=== PATIENT | male | born 1980 | race American Indian/Alaskan Native ===

== ENCOUNTER 2017-03-16 11:09 | Emergency (ER) | payer SELFPAY ==
[2017-03-16 12:09] VITALS: BP 114/70
[2017-03-16] MEDS ORDERED: TORADOL IM ONE (12:48)
[2017-03-16] MEDS ORDERED: NORCO 5/325 PO ONE (12:48)
--- NOTE | 2017-03-16 12:49 | Emergency Department Report ---
ED ENT HPI - General Chief complaint: Dental/Oral Stated complaint: TOOTHACHE,PAIN Source: patient Mode of arrival: Ambulatory Limitations: No Limitations - History of Present Illness Initial comments: 36year old male presents to ED with tooth pain x 1-2 days. patient states he was eating and noticed a piece of his tooth fell out. patient states he has appt with dentist next week for extraction of tooth. patient is stable, neurologically intact and in no acute distress. MD complaint: tooth pain -: Sudden, days(s) (2) Location: tooth # 1 - tooth fracture Severity: mild Quality: aching Consistency: constant Improves with: none Worsens with: eating Context- Dental: history of dental caries Associated Symptoms: gum swelling, toothache. denies: fever, cough, pain with swallowing - Related Data Previous Rx's Medication Instructions Recorded Last Taken Type Amoxicillin 500 mg PO BID #14 capsule 03/16/17 Unknown Rx Meloxicam 7.5 mg PO QAM #7 tablet 03/16/17 Unknown Rx Allergies Allergy/AdvReac Type Severity Reaction Status Date / Time Coconut AdvReac Hives Verified 02/12/16 08:40 peanut AdvReac Swelling Verified 02/12/16 08:40 ED Dental HPI - General Chief complaint: Dental/Oral Stated complaint: TOOTHACHE,PAIN Source: patient Mode of arrival: Ambulatory Limitations: No Limitations - Related Data Previous Rx's Medication Instructions Recorded Last Taken Type Amoxicillin 500 mg PO BID #14 capsule 03/16/17 Unknown Rx Meloxicam 7.5 mg PO QAM #7 tablet 03/16/17 Unknown Rx Allergies Allergy/AdvReac Type Severity Reaction Status Date / Time C[place]ut AdvReac Hives Verified 02/12/16 08:40 peanut AdvReac Swelling Verified 02/12/16 08:40 ED Review of Systems ROS: Stated complaint: TOOTHACHE,PAIN Other details as noted in HPI Constitutional: denies: chills, fever Eyes: denies: eye pain, eye discharge, vision change ENT: dental pain. denies: ear pain, throat pain Respiratory: denies: cough, shortness of breath, wheezing Cardiovascular: denies: chest pain, palpitations Endocrine: no symptoms reported Gastrointestinal: denies: abdominal pain, nausea, diarrhea Genitourinary: denies: urgency, dysuria Musculoskeletal: denies: back pain, joint swelling, arthralgia Skin: denies: rash, lesions Neurological: denies: headache, weakness, paresthesias Psychiatric: denies: anxiety, depression Hematological/Lymphatic: denies: easy bleeding, easy bruising ED Past Medical Hx - Past Medical History Hx Arthritis: Yes (KNEE AND FOOT;) - Surgical History Additional Surgical History: RIGHT KNEE SURGERY. LEFT HAND SURGERY - Social History Smoking Status: Current Some Day Smoker Substance Use Type: Alcohol, Marijuana - Medications Home Medications: Home Medications Medication Instructions Recorded Confirmed Last Taken Type Amoxicillin 500 mg PO BID #14 capsule 03/16/17 Unknown Rx Meloxicam 7.5 mg PO QAM #7 tablet 03/16/17 Unknown Rx ED Physical Exam - General Limitations: No Limitations General appearance: alert, in no apparent distress - Head Head exam: Present: atraumatic, normocephalic - Eye Eye exam: Present: normal appearance - ENT ENT exam: Present: mucous membranes moist - Expanded ENT Exam Expanded Ear exam: Present: normal external inspection Mouth exam: Present: normal external inspection, tongue normal Teeth exam: Present: dental caries, fractured tooth #, gingival enlargement, other (no signs of avulsion, subluxation, intrustion or extrusion) - Neck Neck exam: Present: normal inspection, full ROM. Absent: tenderness - Respiratory Respiratory exam: Present: normal lung sounds bilaterally. Absent: respiratory distress - Cardiovascular Cardiovascular Exam: Present: regular rate, normal rhythm. Absent: systolic murmur, diastolic murmur, rubs, gallop - GI/Abdominal GI/Abdominal exam: Present: soft, normal bowel sounds. Absent: distended, tenderness - Rectal Rectal exam: Present: deferred - Extremities Exam Extremities exam: Present: normal inspection - Back Exam Back exam: Present: normal inspection - Neurological Exam Neurological exam: Present: alert, oriented X3, normal gait - Psychiatric Psychiatric exam: Present: normal affect, normal mood - Skin Skin exam: Present: warm, dry, intact, normal color. Absent: rash ED Course Vital Signs 03/16/17 12:04 Temperature 97.9 F Pulse Rate 63 Respiratory 20 Rate Blood Pressure 114/70 O2 Sat by Pulse 100 Oximetry ED Medical Decision Making - Medical Decision Making 36 year old male presents to ED with toothache x1-2 days. patient has dentist appt scheduled for next Sunday. no evidence of avulsion, intrusion, extrusion or subluxation of tooth. no evidence of exposed pulp or root present at this time. patient is stable, neurologically intact and in no acute distress. Critical care attestation.: If time is entered above; I have spent that time in minutes in the direct care of this critically ill patient, excluding procedure time. ED Disposition Clinical Impression: Fractured tooth Qualifiers: Encounter type: initial encounter Fracture type: closed Qualified Code(s): S02.5XXA - Fracture of tooth (traumatic), initial encounter for closed fracture Disposition: TO HOME OR SELFCARE Is pt being admited?: No Does the pt Need Aspirin: No Condition: Stable Instructions: Toothache (ED) Additional Instructions: Please keep appt with dentist next week as previously scheduled. Prescriptions: Amoxicillin 500 mg PO BID #14 capsule Meloxicam 7.5 mg PO QAM #7 tablet Referrals: PRIMARY CARE, [Primary Care Provider] - 3-5 Days Forms: Work/School Release Form(ED)
== END 2017-03-16 13:05 | disposition home or self-care (01) ==
LOC: ED 11:09
DX: S02.5XXA Fracture of tooth (traumatic), initial encounter for closed fracture (principal); M19.90 Unspecified osteoarthritis, unspecified site; F17.210 Nicotine dependence, cigarettes, uncomplicated; F12.10 Cannabis abuse, uncomplicated; Z91.018 Allergy to other foods; X58.XXXA Exposure to other specified factors, initial encounter; Y93.89 Activity, other specified; Y92.89 Other specified places as the place of occurrence of the external cause; Y99.8 Other external cause status
CPT/HCPCS: 96372; 99282; J1885

== ENCOUNTER 2017-05-05 19:29 | Emergency (ER) | payer OTHER ==
[2017-05-05 19:40] VITALS: BP 123/72
[2017-05-05] MEDS ORDERED: TORADOL IM ONE (21:26)
--- NOTE | 2017-05-05 21:32 | Emergency Department Report ---
ED ENT HPI - General Chief complaint: Dental/Oral Stated complaint: TOOTHACHE Time Seen by Provider: 05/05/17 21:14 Source: patient Mode of arrival: Ambulatory Limitations: No Limitations - History of Present Illness Initial comments: PT states four days ago, he was eating a sub and a piece of his left lower molar broke off. PT states he was taking OTC Motrin but ever since last night, the pain has been 10/10. PT states something similar happened last month with R upper tooth. PT states when he had that tooth pulled, the Dentist told him that his left lower molar had problem due to impacted wisdom tooth. MD complaint: tooth pain Onset/Timin -: days(s) Severity scale (0 -10): 10 Quality: sharp, constant Consistency: constant Worsens with: eating Context- Dental: history of dental caries, other (broke while eating sandwich ) Associated Symptoms: toothache. denies: fever, gum swelling, sore throat - Related Data Previous Rx's Medication Instructions Recorded Last Taken Type Acetaminophen/Codeine [Tylenol #3] 1 tab PO Q6H PRN #12 tab 05/05/17 Unknown Rx Amoxicillin 500 mg PO BID #20 capsule 05/05/17 Unknown Rx Ibuprofen [Motrin] 600 mg PO Q8H PRN #15 tablet 05/05/17 Unknown Rx Allergies Allergy/AdvReac Type Severity Reaction Status Date / Time Coconut AdvReac Hives Verified 05/05/17 19:37 peanut AdvReac Swelling Verified 05/05/17 19:37 ED Dental HPI - General Chief complaint: Dental/Oral Stated complaint: TOOTHACHE Time Seen by Provider: 05/05/17 21:14 Source: family Mode of arrival: Ambulatory Limitations: No Limitations - Related Data Previous Rx's Medication Instructions Recorded Last Taken Type Acetaminophen/Codeine [Tylenol #3] 1 tab PO Q6H PRN #12 tab 05/05/17 Unknown Rx Amoxicillin 500 mg PO BID #20 capsule 05/05/17 Unknown Rx Ibuprofen [Motrin] 600 mg PO Q8H PRN #15 tablet 05/05/17 Unknown Rx Allergies Allergy/AdvReac Type Severity Reaction Status Date / Time C[place]ut AdvReac Hives Verified 05/05/17 19:37 peanut AdvReac Swelling Verified 05/05/17 19:37 ED Review of Systems ROS: Stated complaint: TOOTHACHE Other details as noted in HPI Comment: All other systems reviewed and negative Constitutional: denies: chills ( ), fever ENT: dental pain Musculoskeletal: denies: back pain, joint swelling Skin: denies: rash Neurological: headache ED Past Medical Hx - Past Medical History Hx Arthritis: Yes (KNEE AND FOOT;) - Surgical History Additional Surgical History: RIGHT KNEE SURGERY. LEFT HAND SURGERY - Social History Smoking Status: Current Every Day Smoker Substance Use Type: Alcohol - Medications Home Medications: Home Medications Medication Instructions Recorded Confirmed Last Taken Type Acetaminophen/Codeine [Tylenol #3] 1 tab PO Q6H PRN #12 tab 05/05/17 Unknown Rx Amoxicillin 500 mg PO BID #20 capsule 05/05/17 Unknown Rx Ibuprofen [Motrin] 600 mg PO Q8H PRN #15 tablet 05/05/17 Unknown Rx ED Physical Exam - General Limitations: No Limitations General appearance: alert, in no apparent distress - Head Head exam: Present: atraumatic, normocephalic, normal inspection - Eye Eye exam: Present: normal appearance. Absent: conjunctival injection, nystagmus - ENT ENT exam: Present: normal orophraynx, mucous membranes moist, normal external ear exam. Absent: normal exam - Expanded ENT Exam Expanded Ear exam: Present: normal external inspection Mouth exam: Present: normal external inspection. Absent: drooling, trismus Teeth exam: Present: other (tooth 17 with dental decay, no localized abscess ) 1 - Fractured (dental decay noted) Throat exam: Positive: normal inspection - Neck Neck exam: Present: normal inspection, full ROM. Absent: lymphadenopathy - Respiratory Respiratory exam: Absent: respiratory distress, accessory muscle use - Cardiovascular Cardiovascular Exam: Present: regular rate, normal rhythm - Extremities Exam Extremities exam: Present: normal inspection, full ROM - Back Exam Back exam: Present: normal inspection, full ROM - Neurological Exam Neurological exam: Present: alert, oriented X3 - Psychiatric Psychiatric exam: Present: normal affect, normal mood - Skin Skin exam: Present: warm, dry, intact, normal color ED Course Vital Signs 05/05/17 05/05/17 19:37 21:41 Temperature 98.3 F Pulse Rate 60 Respiratory 18 18 Rate Blood Pressure 123/72 O2 Sat by Pulse 100 Oximetry - Reevaluation(s) Reevaluation #1: 05/05/17 21:35 PT aware of plan of care. - Pulse Oximetry Interpretation Digit-Finger Initial Pulse Oximetry Readin Actions Taken: none ED Medical Decision Making - Differential Diagnosis dental decay, abscess, toothache Critical Care Time: No Critical care attestation.: If time is entered above; I have spent that time in minutes in the direct care of this critically ill patient, excluding procedure time. ED Disposition Clinical Impression: Toothache Disposition: - TO HOME OR SELFCARE Is pt being admited?: No Does the pt Need Aspirin: No Condition: Stable Instructions: Dental Caries (ED), Acute dental trauma (ED), Toothache (ED) Additional Instructions: Refrain from smoking Follow up with Dentist in 3-5 days No driving or alcohol after taking Tylenol #3 Return to the ED if you have facial swelling, are unable to open your mouth or have fevers or concerns Prescriptions: Acetaminophen/Codeine [Tylenol #3] 1 tab PO Q6H PRN #12 tab PRN Reason: Pain , Severe (7-10) Amoxicillin 500 mg PO BID #20 capsule Ibuprofen [Motrin] 600 mg PO Q8H PRN #15 tablet PRN Reason: Pain Referrals: PRIMARY CARE, [Primary Care Provider] - 3-5 Days JORDI ROLAND MD [Staff Physician] - 3-5 Days [facility] [Outside] - 3-5 Days Forms: Work/School Release Form(ED) Time of Disposition: 21:37
[2017-05-05] MEDS ORDERED: TORADOL ONE (21:35)
== END 2017-05-05 21:52 | disposition home or self-care (01) ==
LOC: ED 19:29
DX: S02.5XXA Fracture of tooth (traumatic), initial encounter for closed fracture (principal); K02.9 Dental caries, unspecified; F17.200 Nicotine dependence, unspecified, uncomplicated; M19.90 Unspecified osteoarthritis, unspecified site; Z91.018 Allergy to other foods; Z91.010 Allergy to peanuts; X58.XXXA Exposure to other specified factors, initial encounter; Y93.89 Activity, other specified; Y99.8 Other external cause status; Y92.89 Other specified places as the place of occurrence of the external cause
CPT/HCPCS: 96372; 99282; J1885

== ENCOUNTER 2017-10-21 16:06 | Emergency (ER) | payer SELFPAY ==
[2017-10-21 16:19] VITALS: BP 109/67
[2017-10-21] MEDS ORDERED: TORADOL IM ONE (17:06)
--- NOTE | 2017-10-21 17:12 | Emergency Department Report ---
ED ENT HPI - General Chief complaint: Dental/Oral Stated complaint: TOOTH PAIN Time Seen by Provider: 10/21/17 16:49 Source: patient Mode of arrival: Ambulatory Limitations: No Limitations - History of Present Illness Initial comments: This is a 37-year-old male nontoxic, well nourished in appearance, no acute signs of distress presents to the ED with c/o of left lower toothache 3 days. Patient stated had his tooth pulled. Patient stated that the area has swelling again with pain. Patient stated that pain radiates from his job to his left side of head. Patient otherwise denies any head trauma. Patient describes toothache as aching level of 8 out of 10. Patient denies any facial swelling. Patient denies any numbness, tingling, fever, chills, headache, stiff neck, abdominal pain, chest pain, shortness of breath. Patient denies any drug allergies or significant past medical history. MD complaint: tooth pain -: days(s) (3) Location: tooth # 1 - pain here Severity: mild Severity scale (0 -10): 8 Quality: aching Consistency: constant Improves with: none Worsens with: none Context- Dental: history of dental caries, poor dental care Associated Symptoms: gum swelling, toothache. denies: fever, cough, pain with swallowing, sore throat, tinnitus, hearing loss, discharge from ear, rhinorrhea - Related Data Previous Rx's Medication Instructions Recorded Last Taken Type Acetaminophen/Codeine [Tylenol #3] 1 tab PO Q6H PRN #12 tab 05/05/17 Unknown Rx Amoxicillin 500 mg PO BID #20 capsule 05/05/17 Unknown Rx Ibuprofen [Motrin] 600 mg PO Q8H PRN #15 tablet 05/05/17 Unknown Rx Acetaminophen/Codeine [Tylenol 1 tab PO Q6H PRN #14 tab 10/21/17 Unknown Rx /Codeine # 3 tab] Clindamycin [Clindamycin CAP] 300 mg PO Q8H #21 cap 10/21/17 Unknown Rx Ibuprofen [Motrin] 600 mg PO Q8H PRN #30 tablet 10/21/17 Unknown Rx Allergies Allergy/AdvReac Type Severity Reaction Status Date / Time Coconut AdvReac Hives Verified 05/05/17 19:37 peanut AdvReac Swelling Verified 05/05/17 19:37 ED Dental HPI - General Chief complaint: Dental/Oral Stated complaint: TOOTH PAIN Time Seen by Provider: 10/21/17 16:49 Source: patient Mode of arrival: Ambulatory Limitations: No Limitations - Related Data Previous Rx's Medication Instructions Recorded Last Taken Type Acetaminophen/Codeine [Tylenol #3] 1 tab PO Q6H PRN #12 tab 05/05/17 Unknown Rx Amoxicillin 500 mg PO BID #20 capsule 05/05/17 Unknown Rx Ibuprofen [Motrin] 600 mg PO Q8H PRN #15 tablet 05/05/17 Unknown Rx Acetaminophen/Codeine [Tylenol 1 tab PO Q6H PRN #14 tab 10/21/17 Unknown Rx /Codeine # 3 tab] Clindamycin [Clindamycin CAP] 300 mg PO Q8H #21 cap 10/21/17 Unknown Rx Ibuprofen [Motrin] 600 mg PO Q8H PRN #30 tablet 10/21/17 Unknown Rx Allergies Allergy/AdvReac Type Severity Reaction Status Date / Time C[place]ut AdvReac Hives Verified 05/05/17 19:37 peanut AdvReac Swelling Verified 05/05/17 19:37 ED Review of Systems ROS: Stated complaint: TOOTH PAIN Other details as noted in HPI Constitutional: denies: chills, fever Eyes: denies: eye pain, eye discharge, vision change ENT: dental pain. denies: ear pain, throat pain Respiratory: denies: cough, shortness of breath, wheezing Cardiovascular: denies: chest pain, palpitations Endocrine: no symptoms reported Gastrointestinal: denies: abdominal pain, nausea, diarrhea Genitourinary: denies: urgency, dysuria Musculoskeletal: denies: back pain, joint swelling, arthralgia Skin: denies: rash, lesions Neurological: denies: headache, weakness, paresthesias Psychiatric: denies: anxiety, depression Hematological/Lymphatic: denies: easy bleeding, easy bruising ED Past Medical Hx - Past Medical History Hx Arthritis: Yes (KNEE AND FOOT;) - Surgical History Additional Surgical History: RIGHT KNEE SURGERY. LEFT HAND SURGERY - Social History Smoking Status: Current Every Day Smoker Substance Use Type: None - Medications Home Medications: Home Medications Medication Instructions Recorded Confirmed Last Taken Type Acetaminophen/Codeine [Tylenol #3] 1 tab PO Q6H PRN #12 tab 05/05/17 Unknown Rx Amoxicillin 500 mg PO BID #20 capsule 05/05/17 Unknown Rx Ibuprofen [Motrin] 600 mg PO Q8H PRN #15 tablet 05/05/17 Unknown Rx Acetaminophen/Codeine [Tylenol 1 tab PO Q6H PRN #14 tab 10/21/17 Unknown Rx /Codeine # 3 tab] Clindamycin [Clindamycin CAP] 300 mg PO Q8H #21 cap 10/21/17 Unknown Rx Ibuprofen [Motrin] 600 mg PO Q8H PRN #30 tablet 10/21/17 Unknown Rx ED Physical Exam - General Limitations: No Limitations General appearance: alert, in no apparent distress - Head Head exam: Present: atraumatic, normocephalic - Eye Eye exam: Present: normal appearance Pupils: Present: normal accommodation - ENT ENT exam: Present: mucous membranes moist, TM's normal bilaterally, normal external ear exam - Expanded ENT Exam Expanded Ear exam: Present: normal external inspection Mouth exam: Present: normal external inspection, tongue normal. Absent: drooling, trismus, muffled voice, tongue elevation, laceration Teeth exam: Present: dental caries, fractured tooth #, dental tenderness #, gingival enlargement, other (slight gingival swelling. No facial swelling.) Throat exam: Positive: normal inspection, other (Uvula midline.). Negative: tonsillar erythema, tonsillomegaly, tonsillar exudate, R peritonsillar mass, L peritonsillar mass - Neck Neck exam: Present: normal inspection, full ROM. Absent: tenderness, meningismus, lymphadenopathy - Respiratory Respiratory exam: Present: normal lung sounds bilaterally. Absent: respiratory distress, wheezes, rales, rhonchi, stridor, chest wall tenderness, accessory muscle use, decreased breath sounds, prolonged expiratory - Cardiovascular Cardiovascular Exam: Present: regular rate, normal rhythm, normal heart sounds. Absent: bradycardia, tachycardia, irregular rhythm, systolic murmur, diastolic murmur, rubs, gallop - GI/Abdominal GI/Abdominal exam: Present: soft, normal bowel sounds - Rectal Rectal exam: Present: deferred - Extremities Exam Extremities exam: Present: normal inspection, full ROM, normal capillary refill - Back Exam Back exam: Present: normal inspection, full ROM - Neurological Exam Neurological exam: Present: alert, oriented X3, normal gait - Psychiatric Psychiatric exam: Present: normal affect, normal mood - Skin Skin exam: Present: warm, dry, intact, normal color. Absent: rash ED Course Vital Signs 10/21/17 16:16 Temperature 98 F Pulse Rate 78 Respiratory 18 Rate Blood Pressure 109/67 O2 Sat by Pulse 100 Oximetry - Reevaluation(s) Reevaluation #1: 10/21/17 17:10 Patient is speaking in full sentences with no signs of distress noted. ED Medical Decision Making - Medical Decision Making This is a 37-year-old male that presents with gingivitis and dental caries. Patient is stable and was examined by me. There is njo facial swelling. I used 18-gauge hypo-with 10 mL syringe and try to aspirate in the left upper gingival area to make sure this was an abscess and no prominent drainage has been noted. I did give patient Toradol IM in the ED. He had strict instructions to follow-up with oral maxillary surgeon in 24 hours or if symptoms would worsen to return to emergency room as was possible. Patient is discharged with Ultram, Peridex and Clinda. Patient was instructed not to operate any machinery when taking Ultram due to drowsiness. At time of discharge , the patient does not seem toxic or ill in appearance. No acute signs of distress noted. Patient agrees to discharge treatment plan of care. No further questions noted by the patient. Critical care attestation.: If time is entered above; I have spent that time in minutes in the direct care of this critically ill patient, excluding procedure time. ED Disposition Clinical Impression: Dental caries, Gingivitis Disposition: DC-01 TO HOME OR SELFCARE Is pt being admited?: No Does the pt Need Aspirin: No Condition: Stable Instructions: Dental Caries (ED), Gingivitis (ED), Ibuprofen (By mouth), Clindamycin (By mouth) Additional Instructions: Follow-up with a dentist in 3-5 days or if symptoms worsen and continue return to emergency room as soon as possible. Prescriptions: Acetaminophen/Codeine [Tylenol /Codeine # 3 tab] 1 tab PO Q6H PRN #14 tab PRN Reason: Pain Clindamycin [Clindamycin CAP] 300 mg PO Q8H #21 cap Ibuprofen [Motrin] 600 mg PO Q8H PRN #30 tablet PRN Reason: Pain Referrals: PRIMARY CARE, [Primary Care Provider] - 3-5 Days MARILIN ANDERSON MD [Staff Physician] - 3-5 Days [facility] [Outside] - 3-5 Days Forms: Work/School Release Form(ED)
== END 2017-10-21 17:45 | disposition home or self-care (01) ==
LOC: ED 16:06
DX: K02.9 Dental caries, unspecified (principal); K05.10 Chronic gingivitis, plaque induced; M19.90 Unspecified osteoarthritis, unspecified site; F17.200 Nicotine dependence, unspecified, uncomplicated; Z91.018 Allergy to other foods; Z91.010 Allergy to peanuts
CPT/HCPCS: 96372; 99282; J1885

== ENCOUNTER 2018-01-14 23:35 | Emergency (ER) | payer SELFPAY ==
[2018-01-15 00:15] VITALS: BP 122/70
== END 2018-01-15 01:53 | disposition left against medical advice (07) ==
LOC: ED 23:35
DX: M54.2 Cervicalgia (principal); K08.89 Other specified disorders of teeth and supporting structures; Z53.21 Procedure and treatment not carried out due to patient leaving prior to being seen by health care provider

== ENCOUNTER 2019-04-16 08:36 | Emergency (ER) | payer SELFPAY ==
--- NOTE | 2019-04-16 09:23 | Emergency Department Report ---
Minor Respiratory - HPI Chief Complaint: Eye Problems Stated Complaint: BLURR VISION LT EYE Time Seen by Provider: 04/16/19 09:17 Duration: 3 Days Pain Location: Ear Severity: mild Minor Respiratory: Yes Rhinorrhea, Yes Able to Tolerate Fluids, No Sore Throat, No Ear Pain, No Cough, No Sick Contacts, No Hemoptysis, No Chest Pain, No Shortness of Breath, No Fever Other History: 38 YO WITH FRACTURED MOLAR AND PINK EYE. 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 NO TRAUMA TO EYE. NO CONTACT LENSES ED Review of Systems ROS: Stated complaint: BLURR VISION LT EYE Other details as noted in HPI Comment: All other systems reviewed and negative ED Past Medical Hx - Past Medical History Previous Medical History?: Yes Hx Arthritis: Yes (KNEE AND FOOT;) - Surgical History Past Surgical History?: Yes Additional Surgical History: RIGHT KNEE SURGERY. LEFT HAND SURGERY - Social History Smoking Status: Former Smoker - Medications Home Medications: Home Medications Medication Instructions Recorded Confirmed Last Taken Type Amoxicillin [Trimox CAP] 500 mg PO BID #20 capsule 04/16/19 Unknown Rx Ibuprofen [Motrin] 800 mg PO Q8HR PRN #30 tablet 04/16/19 Unknown Rx Polymyxin B Sulf/Trimethoprim 2 drops OS Q6H #1 each 04/16/19 Unknown Rx [Polytrim Eye Drops] Minor Respiratory Exam - Exam General: Vital signs noted. No distress. Alert and acting appropriately. dental fracture right max molar no 2 HEENT: Yes Moist Mucous Membranes, Yes Conjuctival Injection (l eye red; matted in AM), No Pharyngeal Erythema, No Pharyngeal Exudates, No Rhinorrhea, No Frontal Tenderness, No Maxillary Tenderness Ear: Neither TM Bulge, Neither TM Erythema, Neither EAC Pain, Neither EAC Discharge Neck: Yes Supple, No Adenopathy Lungs: Yes Good Air Exchange, No Wheezes, No Ronchi, No Stridor, No Cough, No Labored Respirations, No Retractions, No Use of Accessory Muscles, No Other Abnormal Lung Sounds Heart: Yes Regular, No Murmur Abdomen: Yes Normal Bowel Sounds, No Tenderness, No Peritoneal Signs Skin: No Rash, No Edema Neurologic: Alert and oriented, no deficits. Musculoskeletal: Unremarkable. ED Course Vital Signs 04/16/19 08:42 Temperature 98.9 F Pulse Rate 79 Respiratory 18 Rate Blood Pressure 115/70 O2 Sat by Pulse 100 Oximetry ED Medical Decision Making - Medical Decision Making conjunctivitis of left eye no trauma globe intact eoms intact vision intact matted in AM no urti s/s afebrile molar no 2 fracture to gum line no abscess abc intact vss taking po dc home with dc plan of care and pcp follow up referral to pcp also given Vital Signs 04/16/19 08:42 Temperature 98.9 F Pulse Rate 79 Respiratory 18 Rate Blood Pressure 115/70 O2 Sat by Pulse 100 Oximetry - Differential Diagnosis uri/dental abscess/caries/fracture/CONJUNCTIVITIS/FB/TRAUMA Critical care attestation.: If time is entered above; I have spent that time in minutes in the direct care of this critically ill patient, excluding procedure time. ED Disposition Clinical Impression: Conjunctivitis, Fracture, tooth, Pain, dental Disposition: DC-01 TO HOME OR SELFCARE Is pt being admited?: No Does the pt Need Aspirin: No Condition: Stable Instructions: Conjunctivitis (ED) Additional Instructions: good handwashing meds as ordered follow up pcp and dentist referral below CALL [facility] FOR INFORMATION ABOUT DENTAL CARE TREATMENT Referrals: BARRETT DELATORRE MD [Staff Physician] - 3-5 Days [facility] [Outside] - 3-5 Days [facility] [Outside] - 3-5 Days Time of Disposition: 09:22
[2019-04-16 09:36] VITALS: BP 118/70
== END 2019-04-16 09:33 | disposition home or self-care (01) ==
LOC: ED 08:36
DX: H10.9 Unspecified conjunctivitis (principal); K03.81 Cracked tooth; M19.90 Unspecified osteoarthritis, unspecified site; Z98.890 Other specified postprocedural states; Z87.891 Personal history of nicotine dependence; Z79.899 Other long term (current) drug therapy; Z91.010 Allergy to peanuts; Z91.018 Allergy to other foods

== ENCOUNTER 2019-05-04 12:34 | Emergency (ER) | payer SELFPAY ==
[2019-05-04 12:56] VITALS: BP 95/64
== END 2019-05-04 14:45 | disposition left against medical advice (07) ==
LOC: ED 12:34
DX: H92.02 Otalgia, left ear (principal); Z53.21 Procedure and treatment not carried out due to patient leaving prior to being seen by health care provider